=== PATIENT | female | born 1960 | race Two or more races ===

== ENCOUNTER 2020-11-04 09:50 | Outpatient (CLI) | payer OTHER ==
[~2020-11-04 09:50] MED LIST: AMOX1TAB5 PO; CEPHALEXIN500 M1 PO; MOTRIN600 MG PO; NAPR500T14 PO
== END 2020-11-04 09:58 | disposition home or self-care (01) ==
LOC: RAD 09:50
PROVIDERS: ATTEND Internal Medicine
DX: J18.0 Bronchopneumonia, unspecified organism (principal); R50.9 Fever, unspecified